=== PATIENT | male | born 1965 | race Caucasian/White ===

== ENCOUNTER 2021-02-12 11:00 | Outpatient (CLI) | payer OTHER, SELFPAY | END 2021-02-12 11:01 | disposition home or self-care (01) | LOC: ANHCOVIDVC 11:00 | PROVIDERS: PCP Internal Medicine | DX: Z23 Encounter for immunization (principal) | CPT/HCPCS: 0001A; 91300 ==

== ENCOUNTER 2021-03-05 10:57 | Outpatient (CLI) | payer OTHER, SELFPAY | END 2021-03-05 10:58 | disposition home or self-care (01) | LOC: ANHCOVIDVC 10:57 | PROVIDERS: PCP Internal Medicine | DX: Z23 Encounter for immunization (principal) | CPT/HCPCS: 0002A; 91300 ==

== ENCOUNTER 2024-10-18 14:12 | Outpatient (CLI) | payer OTHER, SELFPAY ==
--- NOTE | ~2024-10-18 | XR_ITS ---
EXAMINATION: XR wrist LT min 3V, XR hand LT min 3V, XR forearm LT 2V DATE: 10/18/2024 14:33 INDICATION: Unspecified injury with with this pain at the left wrist and forearm. TECHNIQUE: 1. Posteroanterior, ulnar deviation, oblique, and lateral views of the affected wrist were obtained. 2. Dorsal palmar, oblique and lateral views of the affected hand were obtained. 3. AP and lateral views of the left forearm were obtained. COMPARISON: None. FINDINGS: Alignment of the left forearm, hand and wrist is normal. No fracture identified. Mild osteoarthritis at a few of the interphalangeal joints with distal predominance. No left elbow joint. No focal soft tissue swelling. IMPRESSION: 1. 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 No acute osseous abnormali ty. Reviewed, dictated and finalized at location A. GENCY PREPAREDNESS MANAGER IMPRESSION: 1. 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 No a cute osseous abnormality. IMPRESSION: 1. 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 No a cute osseous abnormality.
== END 2024-10-18 14:13 | disposition home or self-care (01) ==
PROVIDERS: PCP Internal Medicine; Visit Provider Internal Medicine
DX: S69.92XA Unspecified injury of left wrist, hand and finger(s), initial encounter (principal); X58.XXXA Exposure to other specified factors, initial encounter; M19.032 Primary osteoarthritis, left wrist
CPT/HCPCS: 73090; 73110; 73130

== ENCOUNTER 2025-03-19 08:36 | Day surgery (SDC) | payer OTHER, SELFPAY ==
[2024-10-20 13:52] VITALS: BMI 29.5
[2025-03-02 12:03] VITALS: BMI 25.7
--- NOTE | 2025-03-19 07:00 | P.PNAN_ITS ---
Anes - Initial Pre Proc Eval Procedure: Operation Date: 03/19/25 10:30 Proposed Procedures p Diagnostic Colonoscopy - Yovanny Hsieh MD Date/Time: 03/19/25 07:00 Surgeon: Yovanny Hsieh MD Pre Op Diagnosis: Family HX of Colon Cancer Patient Data Age: 59 Gender: M Height: 1.83 m Weight: 86 kg Allergies Allergy/AdvReac Type Severity Reaction Status Date / Time No Known Allergies Allergy Verified 03/19/25 09:12 Home Medications Medication Instructions Recorded Confirmed Type aspirin 81 mg chewable tablet 81 mg PO DAILY 01/16/21 03/19/25 History melatonin 5 mg capsule 5 - 8 mg PO .HS 04/23/21 03/19/25 History cholecalciferol (vitamin D3) 50 4,000 unit PO DAILY 10/18/24 03/19/25 History mcg (2,000 unit) capsule rosuvastatin 20 mg tablet 20 mg PO DAILY #90 tabs 11/05/24 03/19/25 Rx Patient hx anesthesia problems: none Family hx anesthesia problems: none Results Review: All pre-operative results and documents have been reviewed as part of the pre- operative evaluation. [facility] Past Medical History Medical History (Updated 10/18/24 @ 13:43 by Hillary Hancock CMA) BMI 29.0-29.9,adult Encounter for routine adult health examination with abnormal findings Left wrist pain Impacted cerumen of right ear Localized swelling, mass and lump, right upper limb Mild depression Hemorrhoid thrombosis Laceration of hand BMI 26.0-26.9,adult Changing skin lesion BMI 28.0-28.9,adult Encounter for routine adult health examination without abnormal findings Impacted cerumen BMI 27.0-27.9,adult Hx of Guillain-Oral syndrome Encounter for preventive health examination On process control specialist drug therapy Hyperlipidemia Erectile dysfunction Family History Family History Father Family history of heart disease in male family member before age 55 Family history of hypercholesterolemia Family history of cardiovascular disease Mother Family history of malignant neoplasm Social History Social History Social History: Caffeine-daily Smoking status: Never smoker Second hand tobacco smoke exposure: No Alcohol intake: current Alcohol use details: lite Substance use: never Substance use type: does not use Lack of Transportation: No Lack of Food: Never True Current Housing: I Have Housing Concerned About Future Housing: No Difficulty Paying Gas/Electric Bills: No Difficulty Paying for Meds: No Currently Unemployed: No Education: Master's Degree or Higher Difficulty w/ Childcare or Family Care: No Living arrangements: alone Occupation/Education: occupation Gender identity (if verbalized by the patient): Male Anes - Eval Final PreProcedure Day of Procedure 03/19/25 07:00 Patient weight: overweight Heart: regular rate and rhythm Lungs: clear to auscultation Airway: Mallampati scale class II Neurological: alert and oriented Last oral intake: >/= 8 hours ASA classification: II Emergent: no Anesthetic plan: proceed Anesthesia type and monitoring: general GIVS and standard monitoring Results Review: All pre-operative results and documents have been reviewed as part of the pre- operative evaluation. Informed Consent: The patient's anesthetic plan and its attendant risks and benefits were disc ussed with the patient/family/POA. Questions were solicited and answers provided to the satisfaction of the patient/family/POA.
[2025-03-19 09:14] VITALS: BP 130/69; PULSE 73; RESP 18; TEMP 36.9; O2SAT 99
[2025-03-19] MEDS: LACTATED RINGERS 1,000 ML 150 ML IV CONT (09:16)
--- NOTE | 2025-03-19 10:40 | PM.IMHP ---
H&P: HPI History of Present Illness Date/Time: 03/19/25 10:40 Chief Complaint: Family history of colon polyps Narrative: This patient has family history of colorectal polyps. His last colonoscopy was 5 years ago. No polyps were found. Review of Systems Review of Systems: All systems reviewed & are unremarkable except as noted in HPI and below PMFSH Past Medical History Medical History (Updated 03/19/25 @ 10:41 by Yovanny Hsieh MD) BMI 29.0-29.9,adult Encounter for routine adult health examination with abnormal findings Left wrist pain Impacted cerumen of right ear Localized swelling, mass and lump, right upper limb Mild depression Hemorrhoid thrombosis Laceration of hand BMI 26.0-26.9,adult Changing skin lesion BMI 28.0-28.9,adult Encounter for routine adult health examination without abnormal findings Impacted cerumen BMI 27.0-27.9,adult Hx of Guillain-[place] syndrome Encounter for preventive health examination On [facility] drug therapy Hyperlipidemia Erectile dysfunction Family History Family History Father Family history of heart disease in male family member before age 55 Family history of hypercholesterolemia Family history of cardiovascular disease Mother Family history of malignant neoplasm Social History Social History Social History: Caffeine-daily Smoking status: Never smoker Second hand tobacco smoke exposure: No Alcohol intake: current Alcohol use details: lite Substance use: never Substance use type: does not use Lack of Transportation: No Lack of Food: Never True Current Housing: I Have Housing Concerned About Future Housing: No Difficulty Paying Gas/Electric Bills: No Difficulty Paying for Meds: No Currently Unemployed: No Education: Master's Degree or Higher Difficulty w/ Childcare or Family Care: No Living arrangements: alone Occupation/Education: occupation Gender identity (if verbalized by the patient): Male Meds Home Medications and Allergies Home Medications Medication Instructions Recorded Confirmed Type aspirin 81 mg chewable tablet 81 mg PO DAILY 01/16/21 03/19/25 History melatonin 5 mg capsule 5 - 8 mg PO .HS 04/23/21 03/19/25 History cholecalciferol (vitamin D3) 50 4,000 unit PO DAILY 10/18/24 03/19/25 History mcg (2,000 unit) capsule rosuvastatin 20 mg tablet 20 mg PO DAILY #90 tabs 11/05/24 03/19/25 Rx Allergies Allergy/AdvReac Type Severity Reaction Status Date / Time No Known Allergies Allergy Verified 03/19/25 09:12 Vital Signs Vital Signs - 24 hr 03/19/25 09:14 Temperature 98.4 F Pulse Rate 73 Respiratory Rate 18 Blood Pressure 130/69 Pulse Oximetry 99 Oxygen Delivery Room Air Exam Const: General: cooperative and healthy appearing Resp: Effort & Inspection: normal respiratory effort and able to speak in complete sentences Auscultation: clear to auscultation bilaterally Cardio: Rate: regular rate Rhythm: regular rhythm GI: Inspection: normal to inspection GI Palp: No No hepatosplenomegaly present Auscultation: normal bowel sounds Rectal Exam: deferred Skin: General skin exam: normal color Psych: Appearance: grossly normal Mental Status: mental status grossly normal Assessment and Plan Assessment and plan (1) Family history of polyps in the colon: Code(s): Z83.719 - Family history of colon polyps, unspecified Status: Acute Assessment and Plan: The patient is deemed a good candidate for the procedure. Consent signed. Will proceed.
[2025-03-19] MEDS: SIMETHICONE ORAL SUSPENSION 20 MG/0.3 ML 30 ML BOTTLE 0.6 ML IRRIGATION (10:58)
[2025-03-19 11:05] VITALS: BP 107/66; PULSE 66; RESP 16; O2SAT 97
[2025-03-19 11:15] VITALS: BP 119/78; PULSE 74; RESP 18; O2SAT 97
[2025-03-19 11:28] VITALS: BP 120/77; PULSE 59; RESP 16; O2SAT 97
--- NOTE | 2025-03-19 13:17 | WPDANESPN ---
Anes - Prog Note Post-Op Date/Time: 03/19/25 13:17 Cardiovascular status: normal Respiratory status: normal Airway patency: baseline Mental status: baseline Post-Op hydration status: normal Vital Signs: Last Vital Signs Temp 36.9 C 03/19/25 09:14 Pulse 59 L 03/19/25 11:28 Resp 16 03/19/25 11:28 BP 120/77 03/19/25 11:28 Pulse Ox 97 03/19/25 11:28 O2 Del Method Room Air 03/19/25 11:28 Pain Score (VAS): 0 I/O: Intake & Output 03/18/25 03/19/25 03/19/25 23:59 07:59 15:59 Intake Total 300 Balance 300 Post-procedural complaints: none Patient Feedback: Patient satisfied with anesthetic care. Other Findings: Patient vital signs back to baseline. Patient denies nausea and vomiting. Patient's pain under control. Patient OK for discharge.
== END 2025-03-19 11:36 | disposition home or self-care (01) ==
PROVIDERS: PCP Internal Medicine; Visit Provider Internal Medicine Gastroenterology
PROC: 0DJD8ZZ Inspection of Lower Intestinal Tract, Via Natural or Artificial Opening Endoscopic (ICD-10-PCS; CPT 45378; principal; 2025-03-19 10:30)
DX: Z12.11 Encounter for screening for malignant neoplasm of colon (principal); K64.8 Other hemorrhoids; Z83.719 Family history of colon polyps, unspecified
CPT/HCPCS: 45378